=== PATIENT | female | born 1965 | race Caucasian/White ===

== ENCOUNTER 2020-09-11 12:34 | Emergency (ER) | payer MEDICARE ==
[~2020-09-11] VITALS: Ht 160 cm; Wt 81.0 kg
[2020-09-11 13:08] VITALS: BP 101/60
--- NOTE | 2020-09-11 13:11 | RAD ---
XR ELBOW COMPLETE_RIGHT 3+ VIEWS, XR HAND_RIGHT 3 VIEWS, XR RT WRIST 3VIEWS, XR FOREARM_RIGHT 2 VIEWS 09/11/2020 12:40 PM INDICATION: Injury from fall, right forearm pain COMPARISON: None available. TECHNIQUE: 2 views of the right forearm, 3 views the right wrist, 3 views the right hand and 3 views of the right elbow are provided. FINDINGS/ IMPRESSION: 1. Right hand: There is no acute fracture or dislocation. Joint spaces are maintained. Bone mineraliz ation is within normal limits. Regional soft tissues are within normal limits. There is no soft tissu e gas or osseous erosion. No radiopaque foreign body. 2. Right wrist and forearm: There is a transversely oriented, comminuted fracture of the distal radia l metadiaphysis with apex dorsal angulation. There is no definite intra-articular extension. Distal u oracle drm consultant is intact. Scaphoid is intact. No carpal abnormality is identified. Joint spaces are maintained. Regional soft tissue swelling is present. 3. Right elbow: Proximal radius and ulna are intact. There may be minimal elevation of the posterior fat pad within the elbow which could represent a small elbow joint effusion. No definite fracture is visualized. Repeat evaluation in 7-10 days could be of benefit if clinically warranted. Electronically signed by: Nely Bond MD (09/11/2020 1:08 PM) [id number]
[2020-09-11] MEDS ORDERED: HYDROmorphone PF 1 MG/ML DISP.SYRIN IM ONE (13:15)
--- NOTE | 2020-09-11 13:18 | PHYS DOC ---
General Adult EDM: Chief Complaint: MECHANICAL FALL HPI: HPI: 55 yo F PMH obesity w/gastric bypass (cannot take nsaids), presents the ED with complaints of right hand pain after patient fell outside while sodding her lawn. States she lost balance and feel forward on her dominant right outstretched hand, hear a "crack." No prior injury to this joint. States the pain goes from her right distal lateral forearm and shoots up her arm to her elbow. Denies any localized elbow or shoulder pain. Denies hitting her head or loss of consciousness. No associated dizziness, syncope, chest pain or shortness of breath. Hydrocodone makes her itch and meperidine drops her blood pressure. No h/o urticaria or angioedema with opiods. Review of Systems: Review of Systems: Constitutional: Denies fever or chills Eyes: Denies change in visual acuity HENT: Denies nasal congestion or sore throat Respiratory: Denies cough or shortness of breath Cardiovascular: Denies chest pain or edema GI: Denies abdominal pain, nausea, vomiting, bloody stools or diarrhea : Denies dysuria Musculoskeletal: Denies back pain or saddle anesthesia Integument: Denies rash Neurologic: Denies headache, focal weakness or sensory changes Endocrine: Denies polyuria or polydipsia Lymphatic: Denies swollen glands Psychiatric: Denies depression or anxiety Current Medications: Current Meds: Current Medications Medications (Trade) Dose Ordered Sig/[facility] Start Time Stop Time Status Last Admin Dose Admin Hydromorphone HCl (Dilaudid) 1 mg 1X ONCE 09/11/20 13:15 09/11/20 13:16 Allergies: Allergies: Allergies Coded Allergies Type Severity Reaction Last Updated Verified hydrocodone Allergy Unknown ITCHING 09/11/20 Yes meperidine Allergy Unknown HYPOTENSION 09/11/20 Yes Physical Exam: PE: Constitutional: Well developed, well nourished, no acute distress, non-toxic appearance. HENT: Normocephalic, atraumatic, Eyes: PERRLA, EOMI, conjunctiva normal, no discharge. Neck: Normal range of motion, supple, no midline neck pain Cardiovascular: S1/2 present, regular rhythm Lungs & Thorax: Speaking in full sentences, bilateral equal chest rise, no tachypnea or increased work of breathing Abdomen: soft, no tenderness, Skin: Warm, dry, no erythema, no rash. [] Back: No midline tenderness, no CVA tenderness. [] Extremities: Swelling w/mild R distal forearm contusion/deformity and ttp, equal radial pulses, normal R median/ulnar/radial nerve distribution, pain with any right wrist movement, no ttp over elbow/shoulder/fingers/hand, no R snuffbox ttp, significant pain with right wrist flexion and extension Neurologic: Alert and oriented X 3, normal motor function, normal sensory function, no focal deficits noted. [] Psychologic: Affect normal, judgement normal, mood normal. [] EKG: EKG: [] Radiology/Procedures: Radiology/Procedures: []IMAGING REPORT Signed PATIENT: WANG SARMIENTO ACCOUNT: [id number] : 1965 LOCATION: ER AGE: 55 SEX: F EXAM STATUS: PRE ER ORD. PHYSICIAN: ZANE REAL DO REASON: Injury from fall, right wrist swelling and pain PROCEDURE: WRIST 3V RIGHT XR ELBOW COMPLETE_RIGHT 3+ VIEWS, XR HAND_RIGHT 3 VIEWS, XR RT WRIST 3VIEWS, XR FOREARM_RIGHT 2 VIEWS 09/11/2020 12:40 PM INDICATION: Injury from fall, right forearm pain COMPARISON: None available. TECHNIQUE: 2 views of the right forearm, 3 views the right wrist, 3 views the right hand and 3 views of the right elbow are provided. FINDINGS/ IMPRESSION: 1. Right hand: There is no acute fracture or dislocation. Joint spaces are maintained. Bone mineralization is within normal limits. Regional soft tissues are within normal limits. There is no soft tissue gas or osseous erosion. No radiopaque foreign body. 2. Right wrist and forearm: There is a transversely oriented, comminuted fracture of the distal radial metadiaphysis with apex dorsal angulation. There is no definite intra-articular extension. Distal ulna is intact. Scaphoid is intact. No carpal abnormality is identified. Joint spaces are maintained. Regional soft tissue swelling is present. 3. Right elbow: Proximal radius and ulna are intact. There may be minimal elevation of the posterior fat pad within the elbow which could represent a small elbow joint effusion. No definite fracture is visualized. Repeat ev aluation in 7-10 days could be of benefit if clinically warranted. Electronically signed by: Basil Friend MD (09/11/2020 1:08 PM) [id number] DICTATED AND SIGNED BY: BASIL FRIEND MD DATE: 09/11/20 3114 CC: [facility]UNKNOWN; [facility] Patient informed of findings. Right radial gutter splint applied by RN. The splint is checked by myself, with appropriate stabilization of the injury. Distal capillary refill normal and distal neurologic function intact Heart Score: C/O Chest Pain: No Risk Factors: Risk Factors: DM, Current or recent (<one month) smoker, HTN, HLP, family history of CAD, obesity. Risk Scores: Score 0 - 3: 2.5% MACE over next 6 weeks - Discharge Home Score 4 - 6: 20.3% MACE over next 6 weeks - Admit for Clinical Observation Score 7 - 10: 72.7% MACE over next 6 weeks - Early Invasive Strategies Course & Med Decision Making: Course & Med Decision Making Pertinent Labs and Imaging studies reviewed. (See chart for details) Concern for closed, comminuted distal radial fracture s/p accidental FOOSH injury. No head injury or midline neck pain. Radial gutter splint applied. Perc ocet for analgesia (friend drove pt here). RICE instructions given. Will discharge home with strict ED return precautions were given for severe pain, skin color changes or neurologic deficits (compartment syndrome). Encouraged urgent outpatient follow-up with PMD and orthopedic surgery within 7 days. Life-threatening processes were considered but are low suspicion at this time, g iven history, physical exam and ED workup. Pt was educated on all prescription medications and adverse effects. All patient's questions were answered and pt was stable at time of discharge. Life/limb-threatening differential includes but is not limited to, trauma (fracture, dislocation, laceration, compartment syndrome, tendon or ligament injury), neurovascular injury or deficit, infection (osteomyelitis, abscess, cellulitis, septic arthritis, necrotizing fasciitis), deep vein thrombosis, renal/cardiac/liver disease, medication adverse effect, lymphedema/anasarca, vascular insufficiency or malignancy, I spoken with the patient and her caregivers. I explained the patient's condition, diagnoses and treatment plan based on the information available to me at this time. I have answered the patient and her caregiver's questions and addressed any concerns. The patient and her caregivers have a good understanding of patient's diagnosis, condition and treatment plan as can be expected at this point. Vital signs have been stable. Patient's condition is stable and appropriate for discharge from the emergency department. Patient will pursue further outpatient evaluation with primary care physician or other designated or consulting physician as outlined in the discharge instructions. The patient and/or caregivers are agreeable to this plan of care and follow-up instructions have been explained in detail. The patient and/or caregivers have received these instructions in written form and have expressed an understanding of the discharge instructions. The patient and/or caregivers are aware that any significant change of condition or worsening of symptoms should prompt immediate return to this or the closest emergency department or call to 9. Natalya Disclaimer: Doblet Disclaimer: This electronic medical record was generated, in whole or in part, using a voice recognition dictation system. Departure Departure: Impression: Primary Impression: Closed fracture of distal end of radius Additional Impression: Fall Disposition: 01 DC HOME SELF CARE/HOMELESS Condition: STABLE Referrals: PCP,UNKNOWN (PCP) FOLLOW UP WITH FAMILY MEDICINE: [facility], [facility] [address] [facility] [address] [place] [address] Instructions: Cast or Splint Care, Forearm Fracture, Radius Fracture with [facility] Additional Instructions: FOLLOW UP WITH ORTHOPEDICS: WITHIN 1 WEEK [facility] [address] [facility] [place] [address] EMERGENCY DEPARTMENT GENERAL DISCHARGE INSTRUCTIONS Thank you for coming to [facility] (ED) today and trusting us with you care. We trust that you had a positivie experience in our Emergency Department. If you wish to speak to the department management, you may call the director at [phone]. YOUR FOLLOW UP INSTRUCTIONS ARE FOLLOWS: 1. Do you have a private Doctor? If you do not have a private doctor, please ask for a resource list of physicians or clinics that may be able to assist you with follow up care. 2. The Emergency Physician has interpreted your x-rays. The X-Ray specialist will also review them. If there is a change in the findings, you will be notified in 48 hours when at all possible. 3. A lab test or culture has been done, your results will be reviewed and you will be notified if you need a change in treatment. ADDITIONAL INSTRUCTIONS AND INFORMATION: 1. Your care today has been supervised by a physician who is specially trained in emergency care. Many problems require more than one evaluation for a complete diagnosis and treatment. We recommend that you schedule your follow up appointment as recommended to ensure complete treatment of you illness or injury. If you are unable to obtain follow up care and continue to have a problem, or if your condition worsens, we recommend that you return to the ED. 2. We are not able to safely determine your condition over the phone nor are we able to give sound medical advice over the phone. For these safety reasons, if you call for medical advice we will ask you to come to the ED for further evaluation. 3. If you have any questions regarding these discharge instructions please call the ED at [phone]. SAFETY INFORMATION: In the interest of safety, wellness, and injury prevention; we encourage you to wear your sealbelt, if you smoke; quite smoking, and we encourage family to use a protective helmet for bicycling and other sporting events that present an increased risk for head injury. IF YOUR SYMPTOMS WORSEN OR NEW SYMPTOMS DEVELOP, OR YOU HAVE CONCERNS ABOUT YOUR CONDITION; OR IF YOUR CONDITION WORSENS WHILE YOU ARE WAITING FOR YOUR FOLLOW UP APPOINTMENT; EITHER CONTACT YOUR PRIMARY CARE DOCTOR, THE PHYSICIAN WHOSE NAME AND NUMBER YOU WERE GIVEN, OR RETURN TO THE ED IMMEDIATELY. Scripts Oxycodone HCl/Acetaminophen (Percocet 5-325 mg Tablet) 1 Each Tablet 1 TAB PO PRN QID PRN for PAIN MDD 4 Tablet(s) for 4 Days, #16 TAB 0 Refills Prov: ZANE REAL DO 09/11/20 ZANE REAL DO Sep 11, 2020 13:18
[2020-09-11] MEDS ORDERED: OXYC-325 PO (13:58)
== END 2020-09-11 14:07 | disposition home or self-care (01) ==
LOC: ER 12:34
DX: S52.591A Other fractures of lower end of right radius, initial encounter for closed fracture (principal); M25.521 Pain in right elbow; M25.531 Pain in right wrist; Z88.5 Allergy status to narcotic agent; Z88.8 Allergy status to other drugs, medicaments and biological substances; W18.39XA Other fall on same level, initial encounter; Y93.89 Activity, other specified; Y92.89 Other specified places as the place of occurrence of the external cause; Y99.8 Other external cause status
CPT/HCPCS: 29105; 73080; 73090; 73110; 73130; 99284; J1170